=== PATIENT | female | born 1965 | race Caucasian/White ===

== ENCOUNTER 2018-02-23 04:26 | Day surgery (SDC) | payer OTHER ==
[2018-02-22 16:54] VITALS: BP 116/79
--- NOTE | 2018-02-22 17:09 | PCM.EKG ---
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
[2018-02-22 17:16] LABS: BASOPHIL % 0.4 % (0.0-0.2); EOSINOPHIL # 0.1 10^3/uL (0.0-0.2); EOSINOPHIL % 1.3 % (0.0-5.0); HEMOGLOBIN 14.1 g/dL (12.0-15.0); LYMPHOCYTES # 2.1 10^3/uL (1.0-4.8); LYMPHOCYTES % 27.3 % (24.0-44.0); MEAN CELL HGB 30.4 pg (26-34); MEAN CELL HGB CONCENTRATION 32.8 g/dL (33-37); MEAN CORP VOLUME 92.7 fL (78-100); MEAN PLATELET VOLUME 9.6 fL (7.8-11.0); MONOCYTES # 0.6 10^3/uL (0.3-0.8); MONOCYTES % 7.3 % (5.0-12.0); NEUTROPHIL # 4.8 10^3/uL (1.8-7.7); NEUTROPHILS % 63.4 % (41.0-85.0); RED CELL DISTRIBUTION WIDTH 13.4 % (11.5-14.5); WHITE BLOOD CELL 7.6 10^3/uL (4.5-11.0)
[2018-02-22 17:50] LABS: CALCIUM 9.5 mg/dL (8.4-10.5); CARBON DIOXIDE 26.7 mmol/L (20.0-32)
[~2018-02-23] VITALS: Ht 160 cm; Wt 73.9 kg
[2018-02-23] VITALS (8 sets, daily range): BP systolic 100–142; BP diastolic 67–83
[~2018-02-23 04:26] MED LIST: ESTR1TAB3 PO; [UNRECOGNIZED DRUG - CODE] PO
[2018-02-23] MEDS ORDERED: LACTATED RINGERS 1,000 ML ONE ×2 (05:28→06:32)
[2018-02-23] MEDS ORDERED: ZOFRAN ONE (06:31)
[2018-02-23] MEDS ORDERED: DECADRON ONE (06:31)
[2018-02-23] MEDS ORDERED: TORADOL ONE (06:31)
[2018-02-23] MEDS ORDERED: SUBLIMAZE ONE (06:31)
[2018-02-23] MEDS ORDERED: VERSED ONE (06:31)
[2018-02-23] MEDS ORDERED: DIPRIVAN IV ONE (06:31)
[2018-02-23] MEDS ORDERED: LIDOCAINE 2% VIAL ONE (06:32)
[2018-02-23] MEDS ORDERED: LACTATED RINGERS 1,000 ML IV SCH (09:00)
[2018-02-23] MEDS ORDERED: XYLOCAINE 2%-EPI 1:100,000 ONE (10:05)
[2018-02-23] MEDS ORDERED: SODIUM CHLORIDE IR ONE (10:06)
[2018-02-23] MEDS ORDERED: ZOFRAN IV PRN ×2 (10:30→12:30)
[2018-02-23] MEDS ORDERED: DILAUDID IV PRN ×2 (10:30→12:30)
[2018-02-23] MEDS ORDERED: SUBLIMAZE IV PRN ×2 (10:30→12:30)
[2018-02-23] MEDS ORDERED: NS 3000ML IRR IR ONE (12:10)
[2018-02-23] MEDS ORDERED: EPHEDRINE SULFATE ONE (12:17)
--- NOTE | 2018-02-23 12:37 | OPH ---
DATE OF SURGERY: 02/23/2018 PREOPERATIVE DIAGNOSIS: Medial meniscal tear of the left knee. 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 OPERATIVE PROCEDURE: Arthroscopy of the left knee with a chondroplasty. SURGEON: Jonathan Reaves MD ANESTHESIA: LMA. TOURNIQUET TIME: 20 minutes at 300 mmHg. DRAINS: None. BLOOD LOSS: 10 mL. DESCRIPTION OF INDICATIONS: The patient is a 52-year-old female who suffered a squatting injury to the left knee in 09/2017. Ever since then, she has complaints of swelling and painful popping about the left knee. She denies any previous problems with the knee. She is no better with anti-inflammatories, home exercise program, and bracing. Her x-rays were negative. Exam showed that she had -10 degrees of full extension of the knee with 110 degrees of flexion. All her ligaments were intact. She had quite a bit of tenderness about the medial joint line. The MRI scan read in [place] showed a medial meniscal tear. Because of continued mechanical symptoms that were painful, the patient was taken to the operating room for arthroscopy. DESCRIPTION OF PROCEDURE: The patient was placed on the operating table in the supine position. LMA anesthetic was induced without difficulty. The patient had the left thigh padded. The left lower extremity was then sterilely prepped and draped. The leg was exsanguinated and the tourniquet was inflated to 300 mmHg. The patient had the arthroscope introduced through the anterolateral portal. The suprapatellar pouch did not have any loose bodies or hypertrophic synovium. The medial and lateral gutters were normal with no osteophytes or loose bodies. The medial compartment was entered. The medial meniscus was probed and visualized throughout its entirety and there were no tears noted about the medial meniscus. She did have some grade 2-3 chondromalacia about the weightbearing surface of the medial femoral condyle. Any of the loose pieces of articular cartilage were debrided with the shaver. There was no exposed subchondral bone. The patient's medial tibial plateau was normal. Intercondylar notch was viewed and the anterior and posterior cruciate ligaments were noted to be normal. The patient's knee was placed in a [id number] position and the lateral compartment was totally normal as far as the meniscus as well as the articular cartilage proximally and distally. Patellofemoral joint was viewed. The articular cartilage was intact proximally and distally throughout its entirety. The patient then had the arthroscopic equipment removed from the knee. The portal tracts were closed with 3-0 Ethilon in an interrupted manner. The patient had the wounds closed with 3-0 Ethilon as noted. A compressive dressing was applied. The tourniquet was released. She was extubated in the operating room, sent to recovery in stable condition. Jonathan Reaves MD DR: HEBERT/jane JOB# [id number]
[2018-02-23] MEDS ORDERED: AFLURIA 2018-2019 SYRINGE IM ONE (13:18)
[2018-02-23] MEDS ORDERED: FLUARIX QUAD 2017-2018 SYRINGE IM ONE (13:30)
[2018-02-23] MEDS ORDERED: TRAM50TA PO (13:40)
== END 2018-02-23 13:40 | disposition home or self-care (01) ==
LOC: SDC 04:26
PROVIDERS: ATTEND Orthopaedic Surgery
DX: M94.262 Chondromalacia, left knee (principal); F17.210 Nicotine dependence, cigarettes, uncomplicated; E66.3 Overweight; Z68.28 Body mass index [BMI] 28.0-28.9, adult; Z91.048 Other nonmedicinal substance allergy status; Z72.89 Other problems related to lifestyle; Z23 Encounter for immunization; Z79.899 Other long term (current) drug therapy; Z83.3 Family history of diabetes mellitus; Z82.49 Family history of ischemic heart disease and other diseases of the circulatory system; Z80.9 Family history of malignant neoplasm, unspecified
CPT/HCPCS: 29877; 36415; 80053; 85025; 90471; 90686; 93005; A4217 ×2; A4649 ×4; J1100; J1885; J2001; J2250; J2405; J3010; J3490 ×2; J7120 ×2